=== PATIENT | male | born 1995 | race Caucasian/White ===

== ENCOUNTER 2023-03-26 17:44 | Emergency (ER) | payer BC, SELFPAY ==
--- NOTE | ~2023-03-26 | XR_ITS ---
Portable chest x-ray Comparison: None Clinical History: Cough Findings: Lungs are clear, without focal consolidation or pleural effusion. Cardiomediastinal silho uette is unremarkable. Bones and soft tissues are unremarkable. Impression: Normal chest. Reviewed, dictated and finalized at location . N HANDLER Impression: Normal chest.
--- NOTE | ~2023-03-26 | CT_ITS ---
EXAMINATION: CT soft tissue neck w con DATE: 03/26/2023 22:37 INDICATION: Dysphagia. TECHNIQUE: Computed tomography (CT) of the neck was performed with 75 mL Omnipaque-350 intravenous co ntrast. Automated exposure control and iterative reconstruction technique were employed. The dose-shree gth product was 585.48 mGy-cm. COMPARISON: None FINDINGS: The palatine tonsils and adenoids are enlarged. The uvula is enlarged. There is mild bilate ral high internal jugular chain lymphadenopathy. The cervical carotid arteries are normal. There is m ild mucosal thickening in the paranasal sinuses. There is kyphosis of cervical spine. IMPRESSION: 1. Enlarged palatine tonsils, adenoids, and uvula, consistent with inflammation. No abscess. 2. Mild bilateral cervical lymphadenopathy, likely reactive. Reviewed, dictated and finalized at location A. [employer] IMPRESSION: 1. Enlarged palatine tonsils, adenoids, and uvula, consistent with inflammation . No abscess. 2. Mild bilateral cervical lymphadenopathy, likely reactive.
[2023-03-26 18:05] VITALS: BP 142/85; PULSE 125; RESP 22; TEMP 37.4; O2SAT 100
[2023-03-26 20:35] VITALS: BP 156/85; PULSE 115; RESP 22; O2SAT 100
--- NOTE | 2023-03-26 20:44 | ED.EAR ---
HPI - Ear Problem General Chief complaint: Ear Stated complaint: PAINFUL EAR AND SWALLOWING Time Seen by Provider: 03/26/23 20:21 History of Present Illness HPI Narrative: 27-year-old male reports for evaluation for sore throat, difficulty talking and pain beneath his right ear x3 days. Patient was seen at urgent care 3 days ago at the onset of symptoms was diagnosed with left otitis media. He was started on antibiotic which she has been taking as directed and states his left ear pain has improved. However, his sore throat has continued worsening. He denies difficulty breathing but states his throat is significantly worsening toxin swallows. He also reports a cough. Denies chest pain or shortness of breath, nausea vomiting, fever. Related Data Allergies Allergy/AdvReac Type Severity Reaction Status Date / Time No Known Allergies Allergy Verified 03/26/23 20:36 Review of Systems Review of Systems: CONSTITUTIONAL: Denies fever, chills, or sweats. EYES: Denies visual changes, redness, or discharge. ENT: see HPI CARDIOVASCULAR: Denies chest pain, palpitations, or edema. RESPIRATORY: Denies cough or dyspnea. GASTROINTESTINAL: Denies abdominal pain, nausea, vomiting, or diarrhea. GENITOURINARY: Denies dysuria or hematuria. SKIN: Denies rash or itching. MUSCULOSKELETAL: Denies back pain, joint pain, or myalgia. NEUROLOGIC: Denies headache, numbness, or weakness. PSYCHIATRIC: Denies anxiety or depression. Exam Narrative: GENERAL: Well-appearing, well-nourished, and in no acute distress. HEAD: Normocephalic, atraumatic. EYES: PERRLA and EOMI. ENT: Nares clear, no rhinorrhea or epistaxis. Mucous membranes moist. Posterior pharynx with large edematous bilateral tonsils and edematous uvula. Kissing tonsils. Exudates to both tonsils with erythema. Airway is patent. Patient speaking in full sentences but does have a hot potato voice. No trismus. left TM is weber nonbulging with normal canal. Right canal not visualized due to cerumen impaction. No tenderness to ears with movement of auricles No mastoid tenderness bilaterally. NECK: Supple. CHEST: Clear to auscultation. No respiratory distress. HEART: Regular rate and rhythm. No murmur heard. Normal peripheral pulses. ABDOMEN: Soft, nontender, nondistended, normal active bowel sounds. EXTREMITIES: Normal range of motion. No edema. SKIN: Warm, dry, no rash. NEURO: No focal deficits. Alert and oriented x3 Course Vital Signs Vital signs: Vital Signs Temperature 99.3 F 03/26/23 18:05 Pulse Rate 125 H 03/26/23 18:05 Respiratory Rate 22 H 03/26/23 18:05 Blood Pressure 142/85 H 03/26/23 18:05 Pulse Oximetry 100 03/26/23 18:05 Temperature 99.3 F 03/26/23 18:05 Pulse Rate 105 H 03/27/23 01:17 Respiratory Rate 20 03/27/23 01:17 Blood Pressure 128/90 03/27/23 01:17 Pulse Oximetry 97 03/27/23 01:17 Medical Decision Making MDM Narrative Medical decision making narrative: 27-year-old male reports for evaluation for sore throat, difficulty talking, pain with swallowing. See HPI for further history. Vitals significant for tachycardia and mild tachypnea. He is afebrile and speaking in full sentences, however does have hot potato voice. Exam significant for the above. Concerned for ANTHROPOLOGIST PHYSICAL or retropharyngeal abscess. CBC with leukocytosis of 11.2. Patient is positive for mono. Chemistries are unremarkable other than mild elevation of ALT 82 alk-phos of 131 Which may be secondary to mono. His CRP is elevated to 15.5, ESR is normal. Flu, RSV and COVID and strep are negative. Chest x-ray shows no acute cardiopulmonary abnormalities. CT soft tissue neck shows findings concerning for tonsillitis with inflammation and edema of the parapharyngeal soft tissues. There is no evidence of abscess. Uvulitis. Cervical lymphadenopathy. Findings concerning for bronchitis which may be infectious or inflammatory. Part there is prominent mediast
[2023-03-26 21:14] LABS: Basophils Absolute Auto 0.1 K/mm3 (0.0-0.1); Basophils Percent Auto 0.8 % (0.2-1.2); Eosinophils Percent Auto 0.1 % (0-4.4); Hematocrit 44.7 % (42.0-52.0); Hemoglobin 14.4 g/dL (14.0-18.0); Immature Granulocyte Absolute 0.02 K/mm3 (0.00-0.031); Immature Granulocyte Percent A 0.2 % (0-0.5); Lymphocytes Absolute Auto 5.11 K/mm3 (0.9-3.2); Lymphocytes Percent Auto 45.8 % (18.3-44.2); Mean Corpuscular HGB Conc 32.2 g/dl (32-36); Mean Corpuscular Hemoglobin 28.2 pg (26-34); Mean Corpuscular Volume 87.5 fl (80-100); Monocytes Percent Auto 8.5 % (2.6-8.5); Neutrophils Percent Auto 44.6 % (45.5-73.1); Platelet Count Result 248 k/mm3 (150-375); Red Blood Count 5.11 M/mm3 (4.6-6.20); Red Cell Distribution Width 13.4 % (11.5-14.5); White Blood Count 11.2 K/mm3 (4.5-10.0)
[2023-03-26 21:29] LABS: Atypical Lymphocytes Present; Platelet Estimate Adequate (Adequate); Schistocytes None Seen (NORMAL)
[2023-03-26 21:32] LABS: Alanine Aminotransferase 82 U/L (6-50); Alkaline Phosphatase 131 U/L (38-126); Anion Gap 10 mmol/L (8-16); Aspartate Amino Transferase 49 U/L (17-59); Blood Urea Nitrogen 15 mg/dL (9-20); Calcium 9.5 mg/dL (8.4-10.2); Carbon Dioxide 23 mmol/L (22-30); Chloride 105 mmol/L (98-107); Estimated Glomerular Filt Rate > 60; Glucose 99 mg/dL (65-110); Potassium 4.2 mmol/L (3.4-5.0); Sodium 138 mmol/L (137-145)
[2023-03-26 21:38] LABS: Strep Group A RT-PCR NOT DETECTED (Negative)
[2023-03-26 21:43] LABS: CRP 15.5 mg/dL (<1.0); Monoscreen Positive (Negative); Negative Monotest Control Negative (Negative); Positive Monotest Control Positive (Positive)
[2023-03-26 21:53] LABS: Influenza A QL RT-PCR Negative (Negative); Influenza B QL RT-PCR Negative (Negative); RSV RNA, RT-PCR Negative (Negative); SARS-CoV-2 RNA PCR Negative (Negative)
[2023-03-26 21:56] LABS: Erythrocyte Sedimentation Rate 20 mm/hr (0-20)
[2023-03-26] MEDS: SODIUM CHLORIDE 0.9% IV 1,000 ML 999 ML IV CONT (22:35)
[2023-03-26 23:14] VITALS: O2SAT 100
[2023-03-26 23:15] VITALS: O2SAT 100
[2023-03-26 23:30] VITALS: O2SAT 98
[2023-03-26 23:45] VITALS: O2SAT 99
[2023-03-27] VITALS (7 sets, daily range): BP systolic 128–144; BP diastolic 78–90; PULSE 99–105; RESP 20; O2SAT 96–99
[2023-03-27] MEDS: KETOROLAC 30 MG/ML VIAL (*BKC) IV PUSH (00:46)
== END 2023-03-27 02:16 | disposition home or self-care (01) ==
PROVIDERS: Emergency Provider Physician Assistant
DX: B27.00 Gammaherpesviral mononucleosis without complication (principal); J03.90 Acute tonsillitis, unspecified; K12.2 Cellulitis and abscess of mouth; Z20.822 Contact with and (suspected) exposure to COVID-19
CPT/HCPCS: 36415; 70491; 71045; 80053; 85025; 85652; 86140; 86308; 87637; 87651; 96361; 96374; 96375; 99284; J1100; J1885; J7030; Q9967

== ENCOUNTER 2024-04-12 14:50 | Outpatient (CLI) | payer BC, SELFPAY | END 2024-04-12 14:51 | disposition home or self-care (01) | LOC: MICIMG 14:51 | PROVIDERS: PCP Nurse Practitioner Family; Visit Provider Nurse Practitioner Family | DX: R22.41 Localized swelling, mass and lump, right lower limb (principal) | CPT/HCPCS: 76882 ==

== ENCOUNTER 2024-04-19 08:45 | Outpatient (CLI) | payer BC, SELFPAY ==
[2024-04-19 09:52] LABS: Hematocrit 47.4 % (42.0-52.0); Hemoglobin 15.2 g/dL (14.0-18.0); Mean Corpuscular HGB Conc 32.1 g/dl (32-36); Mean Corpuscular Hemoglobin 28.7 pg (26-34); Mean Corpuscular Volume 89.6 fl (80-100); Mean Platelet Volume 10.8 fl (7.4-10.4); Platelet Count Result 279 k/mm3 (150-375); Red Blood Count 5.29 M/mm3 (4.6-6.20); White Blood Count 5.1 K/mm3 (4.5-10.0)
[2024-04-19 10:24] LABS: Alanine Aminotransferase 29 U/L (6-50); Albumin Level 4.6 g/dL (3.5-5.1); Alkaline Phosphatase 69 U/L (38-126); Anion Gap 11 mmol/L (4-12); Aspartate Amino Transferase 24 U/L (17-59); Bilirubin,Total 0.8 mg/dL (0.2-1.3); Blood Urea Nitrogen 16 mg/dL (9-20); Calcium 9.5 mg/dL (8.4-10.2); Carbon Dioxide 24 mmol/L (22-30); Chloride 105 mmol/L (98-107); Cholesterol 216 mg/dL (0-200); Estimated Glomerular Filt Rate > 60; Glucose 85 mg/dL (65-110); HDL Direct 46 mg/dL; Potassium 4.1 mmol/L (3.4-5.0); Sodium 140 mmol/L (137-145); Triglycerides 134 mg/dL (<150)
[2024-04-19 10:35] LABS: LDL Cholesterol Direct 121 mg/dL
[2024-04-19 10:39] LABS: Hemoglobin A1C 5.5 % (<5.7)
== END 2024-04-19 08:46 | disposition home or self-care (01) ==
LOC: ANHLAB 08:48
PROVIDERS: PCP Nurse Practitioner Family; Visit Provider Nurse Practitioner Family
DX: R74.8 Abnormal levels of other serum enzymes (principal); Z00.00 Encounter for general adult medical examination without abnormal findings; Z13.1 Encounter for screening for diabetes mellitus; Z13.220 Encounter for screening for lipoid disorders; Z13.0 Encounter for screening for diseases of the blood and blood-forming organs and certain disorders involving the immune mechanism; Z68.34 Body mass index [BMI] 34.0-34.9, adult
CPT/HCPCS: 36415; 80053; 80061; 83036; 85027